=== PATIENT | male | born 1975 | race Two or more races ===

== ENCOUNTER 2025-01-01 05:31 | Emergency (ER) | payer MEDICAID, OTHER ==
[~2025-01-01] VITALS: Ht 165.1 cm; Wt 73.0 kg
[~2025-01-01 05:31] MED LIST: AMLO10TA80 PO; ASPI-1406 PO; CALC667C PO; FLUO-336 PO; GLIP5TAB22 PO; HYDR50TA39 PO; ISOS10TA2 PO; LIP40 MT
[2025-01-01 05:35] VITALS: O2SAT 97
[2025-01-01 06:28] LABS: BASOPHILS % 0.4 % (0.0-2.0); DIFFERENTIAL COMMENT 0; EOSINOPHILS % 2.2 % (0.0-5.0); HEMATOCRIT. 27.7 % (42.0-52.0); HEMOGLOBIN. 9.2 g/dL (14.0-18.0); LYMPHOCYTES % 15.8 % (20.0-50.0); MEAN CORPUSCULAR HEMOGLOBIN 30.3 pg (28.0-32.0); MEAN CORPUSCULAR VOLUME 91.8 fL (80.0-94.0); NEUTROPHILS % 75.6 % (40.0-76.0); PLATELET 94 x1000/uL (130-400); RED BLOOD CELL COUNT 3.02 mill/uL (4.7-6.1); RED CELL DISTRIBUTION WIDTH 17.5 % (11.6-14.6); WHITE BLOOD COUNT 5.3 x1000/uL (4.5-11.0)
[2025-01-01 06:40] LABS: CALCIUM 7.2 mg/dL (8.7-10.4)
[2025-01-01] MEDS: ASPIRIN 81MG TABLET PO ONE (08:12)
[2025-01-01 11:08] VITALS: BP 136/69; PULSE 76; RESP 17; TEMP 36.4; O2SAT 100
[2025-01-01 12:53] LABS: HEPATITIS B SURFACE ANTIGEN NEGATIVE (Negative)
[2025-01-01 13:14] LABS: HEPATITIS A AB IGM NEGATIVE (Negative); HEPATITIS B CORE AB IGM NEGATIVE (Negative)
[2025-01-01 13:15] LABS: HEPATITIS C AB NON REACTIVE (Neg) (Negative)
== END 2025-01-01 11:37 | disposition short-term general hospital (02) ==
LOC: ER 05:31 → CANBEDREQ 08:47 → ER 11:37
DX: E11.649 Type 2 diabetes mellitus with hypoglycemia without coma (principal); E11.22 Type 2 diabetes mellitus with diabetic chronic kidney disease; G45.9 Transient cerebral ischemic attack, unspecified; I12.0 Hypertensive chronic kidney disease with stage 5 chronic kidney disease or end stage renal disease; N18.6 End stage renal disease; Z99.2 Dependence on renal dialysis; Z79.84 Long term (current) use of oral hypoglycemic drugs; Z79.82 Long term (current) use of aspirin; Z79.899 Other long term (current) drug therapy
CPT/HCPCS: 80048; 82962; 85025; 87340; 36415; 86705; 86709; 71045; 70450; 93005; 99285; Z7610 ×2